=== PATIENT | male | born 1980 | race African-American/Black ===

== ENCOUNTER 2016-12-16 23:01 | Emergency (ER) | payer MEDICAID ==
[~2016-12-16] VITALS: Ht 170.2 cm; Wt 65.0 kg
[2016-12-16] MEDS ORDERED: LORAZEPAM 1MG TABLET PO ONE (23:45)
[2016-12-16] MEDS ORDERED: TETANUS, DIPHTHERIA, PERTUSSIS VAC/PF 0.5ML (>7YR OLD) IM ONE (23:45)
[2016-12-16] MEDS ORDERED: KETOROLAC 60MG/2ML VIAL IM ONE (23:45)
[2016-12-17] MEDS ORDERED: AMOXICILLIN/POTASSIUM CLAVULANATE 875/125MG TAB PO ONE (01:15)
[2016-12-17 01:47] VITALS: BP 121/84
== END 2016-12-17 02:09 | disposition home or self-care (01) ==
LOC: ER 23:01
DX: S51.852A Open bite of left forearm, initial encounter (principal); S51.851A Open bite of right forearm, initial encounter; S30.811A Abrasion of abdominal wall, initial encounter; J45.909 Unspecified asthma, uncomplicated; Y35.893A Legal intervention involving other specified means, suspect injured, initial encounter; Y93.89 Activity, other specified; Y92.89 Other specified places as the place of occurrence of the external cause
CPT/HCPCS: 73090; 90471; 90715; 93005; 96372; 99284; J1885; Z7610